=== PATIENT | female | born 1990 | race Caucasian/White ===

== ENCOUNTER 2017-07-23 12:27 | Emergency (ER) | payer BC ==
[2017-07-23 12:59] VITALS: BP 133/90
[2017-07-23] MEDS ORDERED: Sodium Chloride 0.9% 10 ML Syringe FLUSH PRN (13:28)
[2017-07-23] MEDS ORDERED: Sodium Chloride 0.9% 1,000 ML IV SCH (13:30)
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
[2017-07-23] MEDS ORDERED: Iopamidol 612 MG/ML 150 ML Bottle IV PRN (13:52)
--- NOTE | 2017-07-23 14:31 | CT ---
Abdomen Pelvis w Cont HISTORY: gen abd pain Axial spiral enhanced CT scan of the abdomen and pelvis was obtained using IV contrast only. Coronal reconstructions were obtained. There are no prior CT studies for comparison. FINDINGS: Heart size is normal. Lung bases are clear. There is no pleural fluid. I see no focal amoun t of the liver, spleen, gallbladder, pancreas, adrenal glands, or kidneys. No obvious renal or ureter al calculi can be seen. There is no hydronephrosis or ureteral dilatation. No pelvic mass or abnormal fluid collections are seen. IUD is noted in the endometrial cavity of the uterus. Position appears satisfactory. No other uterine or adnexal abnormality can be seen. I see no pelvic, retroperitoneal, or mesenteric adenopathy. There is no free air or free fluid. Small bowel loops are nondistended. There is no diverticular disease. A normal-appearing appendix is visualized. Bony structures are unremarkable. IMPRESSION: No acute intra-abdominal or pelvic adenopathy is identified. IUD position appears satisfa ctory in the endometrial cavity of the uterus. Findings were discussed with Dr. Riosr in the emergency department at 1426 hours. Total DLP 997 mGycm
== END 2017-07-23 15:53 | disposition home or self-care (01) ==
LOC: JP.ED 12:27
DX: R10.2 Pelvic and perineal pain (principal); F41.9 Anxiety disorder, unspecified; F32.9 Major depressive disorder, single episode, unspecified; F17.210 Nicotine dependence, cigarettes, uncomplicated; Z79.899 Other long term (current) drug therapy
CPT/HCPCS: 36415; 74177; 80053; 81001; 81025; 83605; 83690; 85025; 86140; 96360; 99284; J7030; J7040

== ENCOUNTER 2025-08-25 06:31 | Emergency (ER) | payer BC ==
[2025-08-25 08:40] LABS: APPEARANCE,URINE CLOUDY (CLEAR); GLUCOSE,URINE NEGATIVE (NEGATIVE); OCCULT BLOOD,URINE LARGE (NEGATIVE)
[2025-08-25 08:43] LABS: BASOPHILS ABSOLUTE AUTO 0.03 K/uL (0.00-0.10); BASOPHILS PERCENT AUTO 0.4 % (0.1-1.3); EOSINOPHILS ABSOLUTE AUTO 0.06 K/uL (0.00-0.40); EOSINOPHILS PERCENT AUTO 0.7 % (0.0-5.4); IMMATURE GRAN PERCENT AUTO 0.2 % (0.0-0.7); LYMPHOCYTES ABSOLUTE AUTO 1.44 K/uL (0.8-3.3); LYMPHOCYTES PERCENT AUTO 17.4 % (11.4-47.7); MONOCYTES ABSOLUTE AUTO 0.56 K/uL (0.20-0.90); MONOCYTES PERCENT AUTO 6.8 % (3.3-12.6); NEUTROPHILS ABSOLUTE AUTO 6.18 K/uL (1.0-7.6); NEUTROPHILS PERCENT AUTO 74.5 % (40.0-78.1); PLATELET COUNT,PLT 229 K/uL (130-375); RED BLOOD CELL COUNT 5.07 M/uL (3.77-5.24); WHITE BLOOD CELL COUNT,WBC 8.3 K/uL (3.2-11.0)
[2025-08-25 08:44] LABS: IMMATURE GRAN ABSOLUTE AUTO 0.02 K/uL (0.00-0.23)
[2025-08-25 08:54] LABS: SQUAMOUS EPITHELIAL CELLS,UR FEW /HPF; UROTHELIAL CELLS,URINE NOT SEEN /HPF
[2025-08-25] MEDS ORDERED: Acetaminophen/oxyCODONE 325-5 MG Tab PO ONE (09:01)
[2025-08-25 09:04] LABS: A/G RATIO 1.1 (1.2-2.2); ALANINE AMINOTRANSFERASE,ALT 21 U/L (12-78); ASPARTATE AMNIOTRANSFERASE,AST 10 U/L (15-37); BILIRUBIN TOTAL 0.5 mg/dL (0.2-1.0); BLOOD UREA NITROGEN,BUN 12 mg/dL (7-18); CARBON DIOXIDE,CO2 30 mmol/L (21-32); CHLORIDE,CL 101 mmol/L (100-108); CREATININE 0.8 mg/dL (0.6-1.0); EST CRCL DRUG DOSING (CG) 88.32 mL/min; ESTIMATED GFR 98 mL/min (>60); GLUCOSE RANDOM 89 mg/dL (74-106); POTASSIUM,K 4.1 mmol/L (3.6-5.2); PROTEIN TOTAL,TP 7.4 g/dL (6.4-8.2); SODIUM,NA 136 mmol/L (140-148)
[2025-08-25 09:45] VITALS: BP 127/89; PULSE 62
== END 2025-08-25 10:37 | disposition home or self-care (01) ==
LOC: JP.ED 06:31
DX: N93.9 Abnormal uterine and vaginal bleeding, unspecified (principal); Z98.891 History of uterine scar from previous surgery; Z79.899 Other long term (current) drug therapy; Z91.018 Allergy to other foods; Z87.891 Personal history of nicotine dependence
CPT/HCPCS: 36415; 76830; 76830-26; 76856; 76856-26; 80053; 81001; 85025; 93976; 93976-26; 99284